=== PATIENT | female | born 1945 | race Caucasian/White ===

== ENCOUNTER → 2017-07-16 | Outpatient (CLI) | payer OTHER ==
[~2017-07-16] MED LIST: ATV5 PO; CHOL100027 PO; CRDCD/180 PO; DILT240C57 PO; FERR324T PO; LZL/125 PO; POTA-327 PO; WARF1TAB PO; indapamide PO
[2017-07-16 13:20] LABS: BLOOD UREA NITROGEN 10 mg/dl (7-18); CALCIUM 9.1 mg/dl (8.5-10.1); CARBON DIOXIDE 31 mmol/L (21-32); GLUCOSE 112 mg/dl (70-99); POTASSIUM 3.3 mmol/L (3.5-5.1); SODIUM 137 mmol/L (136-145)
== END | disposition home or self-care (01) ==
LOC: C.LABMFLN 10:44
PROVIDERS: ATTEND Family Medicine
DX: I10 Essential (primary) hypertension (principal)